=== PATIENT | female | born 1955 | race Two or more races ===

== ENCOUNTER 2025-06-26 07:09 | Day surgery (SDC) | payer OTHER ==
[2025-06-25 11:26] LABS: Hematocrit 40.2 % (36.0-46.0); Hemoglobin 13.8 g/dL (12.2-16.2); Mean Corpuscular Hemoglobin 30.3 pg (28.0-32.0); Mean Corpuscular Volume 88.6 fL (80.0-100.0); Nucleated Red Blood Cells % 0.1 %
[2025-06-25 11:28] LABS: INR 1.01 (0.9-1.15); Partial Thromboplastin Time 27.9 SEC (24.5-34.5); Prothrombin Time 10.7 sec (9.3-11.8)
[2025-06-25 11:40] LABS: Alanine Aminotransferase 21 U/L (7-40); Albumin 4.5 g/dL (3.2-4.8); Alkaline Phosphatase 68 U/L (46-116); Anion Gap 15 (5-15); BUN/Creatinine Ratio 7.6 (10.0-20.0); Calcium 9.4 mg/dL (8.7-10.4); Carbon Dioxide 26 mmol/L (20-31); Chloride 103 mmol/L (98-107); Sodium 144 mmol/L (136-145); Total Protein 7.8 g/dL (5.7-8.2)
[2025-06-25 11:41] LABS: Bilirubin, Total 0.5 mg/dL (0.2-1.0)
[2025-06-25 11:44] LABS: Blood Urea Nitrogen 6 mg/dL (9-23); Glucose 126 mg/dL (74-106); Potassium 3.3 mmol/L (3.5-5.1)
[2025-06-25 15:18] LABS: Urine Protein, UAD 1+ (Negative)
[~2025-06-26] VITALS: Ht 167.6 cm; Wt 70.8 kg
[~2025-06-26 07:09] MED LIST: BERB500C PO
[2025-06-26] MEDS ORDERED: IOHEXOL 300 MG/ML 100ML BOTTLE IJ ONE (07:47)
[2025-06-26] MEDS ORDERED: SUCCINYLCHOLINE CHLORIDE 20 MG/ML 10ML VIAL IV ONE (08:07)
[2025-06-26] MEDS ORDERED: fentaNYL CITRATE 100 MCG/2 ML VL ONE (08:08)
[2025-06-26] MEDS: CIPROFLOXACIN 400MG/200ML 200 ML IV ONE (08:10)
[2025-06-26] MEDS ORDERED: METOCLOPRAMIDE HCL 5MG/ml INJ 2ml VIAL ONE (08:58)
[2025-06-26 09:01] VITALS: PULSE 97; RESP 16; O2SAT 95
--- NOTE | 2025-06-26 09:10 | DVHNC2 ---
Procedure - OPERATIVE REPORT Pre-op. Diagnosis: Ureteral Stone - RIGHT Right flank pain Right percutaneous nephrostomy tube in-situ Post-op. Diagnosis: right distal ureteral calculus passed Operation: Right ureteroscopy/pyeloscopy Retrograde Pyelogram with Interpretation Cystoscopy with Ureteral catheterization removal of right percutaneous nephrostomy tube Anesthesia: General Indications: Ureteral Stone. patient required a right percutaneous nephrostomy tube placement over a month ago secondary to an obstructing 7 mm right distal ureteral calculus. Complications including but not limited to infection, bleeding, damage to surrounding structures, were discussed. Informed consent was obtained. Details of Procedure: The patient was brought to the operating room and placed upon the table. After induction of anesthesia, patient was placed in the lithotomy position. Patient's genitalia and peritoneal regions were prepped and draped in standard surgical fashion. A rigid cystoscope was assembled and introduced into the urinary bladder. A 6 Swedish open-ended catheter was used to perform a righy Retrograde pyelogram under fluoroscopy. It was essentially negative study. The ureteral catheter was removed keeping the guidewire in place. I then proceeded in performing ureteroscopy/ pyeloscopy using a flexible digital ureteroscope. No stones were encountered in the ureter as well as in the renal calyces. The right nephrostomy tube was then removed under direct vision. The ureteroscope was removed in entirety. Patient was awakened and sent to PACU in satisfactory condition. Patient tolerated the procedure well. Specimens: None Complications: None Findings: Fluoroscopy: right retrograde pyelogram shows no evidence of distal ureteral calculus. right ureter was patent. right nephrostomy tube was removed ARELI MISHRA MD Jun 26, 2025 09:10
--- NOTE | 2025-06-26 09:11 | DVHDS2 ---
New Physician D'charge PN Admitting Diagnosis Admitting Diagnosis Right percutaneous nephrostomy tube in-situ Right distal ureteral calculus Discharge Diagnosis Right distal ureteral calculus past Operations or Procedures Cystoscopy with right retrograde pyelogram, right ureteroscopy with pyeloscopy and removal of nephrostomy tube Reason(s) For Hospitalization Surgery Treatment Plan Discharge Condition of Discharge Fair Disposition Home Discharge Instructions Diet: Regular Activity: Light activity Activity comment: As tolerated Medications: Given Follow Up Care Follow Up/Referral: PRN Discharge Statement: "Patient was advised to return to the ER or call 911 if any headaches, dizziness, shortness of breath, chest pain, abdominal pain, bleeding, fevers, or worsening of medical condition. Patient was counseled about treatment plan, medications, possible side effects, patientverbalized understanding. All questions were answered to the best of my ability. This discharge took greater then 30 minutes in planning, reviewing documentation, counseling the patient, and discussing with other team members." ARELI MISHRA MD Jun 26, 2025 09:11
[2025-06-26 09:46] VITALS: BP 130/53; PULSE 83; RESP 15; O2SAT 95
--- NOTE | 2025-06-26 11:44 | DVH ---
XY KUB ABDOMEN SINGLE VIEW, HISTORY: LASER TECHNICAL DATA: 7 intraoperative fluoroscopic spot images were obtained . COMPARISON: US KIDNEY RETROPERITONEUM on DOS: 05/20/25, CT ABD/PEL on DOS: 05/18/25, CT ABD/PEL W - IV o n DOS: 05/18/25 FINDINGS/IMPRESSION: C-arm fluoroscopic images were obtained for anatomic localization. The images are of low resolution b ut demonstrate instrumentation over the pelvis and kidney . Total fluoroscopy time was 83 seconds. 12 .53 mGy. Please see the operative report for further details.
== END 2025-06-26 10:11 | disposition home or self-care (01) ==
LOC: SUR 07:09
PROVIDERS: ATTEND Urology
DX: N20.1 Calculus of ureter (principal); E11.9 Type 2 diabetes mellitus without complications; Z79.899 Other long term (current) drug therapy; Z87.442 Personal history of urinary calculi; Z90.49 Acquired absence of other specified parts of digestive tract; Z98.890 Other specified postprocedural states; Z88.0 Allergy status to penicillin; Z88.1 Allergy status to other antibiotic agents; Z88.5 Allergy status to narcotic agent; Z88.8 Allergy status to other drugs, medicaments and biological substances
CPT/HCPCS: 36415; 50389; 52351; 74018; 74420; 80053; 81001; 82962; 85025; 85610; 85730; 87086; 87088; 87186; J0330; J0744; J2765; J3010; Q9967; 76000